=== PATIENT | female | born 1995 | race Caucasian/White ===

== ENCOUNTER 2017-01-03 08:28 | Day surgery (SDC) | payer MEDICAID ==
[~2017-01-03 08:28] MED LIST: Lactated Ringers 1,000 ML IV SCH; Lidocaine 1%/Sod Bicarbonate in NS 8.4% 1 ML Syringe IV PRN; Sodium Chloride 0.9% 10 ML Syringe FLUSH PRN
--- NOTE | 2017-01-03 08:55 | PCM.PREANE ---
Preanesthetic Assessment - Anesthesia/Transfusion/Family Hx Anesthesia History: Prior Anesthesia Without Reaction Family History of Anesthesia Reaction: No Transfusion History: No Prior Transfusion(s) - Review of Systems General: No Symptoms Pulmonary: Shortness of Breath (few weeks- allergies- needs inhaler) Cardiovascular: Chest Pain (went to dr and is now here- esophagus area) Gastrointestinal: No symptoms Neurological: No Symptoms Other: Reports: Easy Bruising, Depression, Anxiety - Physical Assessment NPO Status Date: 01/02/17 NPO Status Time: 19:00 (sip this am with pill) Pulse: 81 O2 Sat by Pulse Oximetry: 99 Respiratory Rate: 16 Blood Pressure: 110/49 Temperature: 97.6 F Height: 5 ft Weight: 74.389 kg ASA Class: 2 Mental Status: Alert & Oriented x3 Airway Class: Mallampati = 1 Dentition: Reports: Normal Dentition Thyro-Mental Finger Breadths: 3 Mouth Opening Finger Breadths: 3 ROM/Head Extension: Full Lungs: Clear to auscultation, Normal respiratory effort Cardiovascular: Regular Rate, Regular Rhythm - Allergies Allergies/Adverse Reactions: Allergies Allergy/AdvReac Type Severity Reaction Status Date / Time No Known Allergies Allergy Verified 02/02/14 20:22 - Blood Blood Available: No - Acknowledgements Anesthesia Type Planned: MAC Pt an Appropriate Candidate for the Planned Anesthesia: Yes Alternatives and Risks of Anesthesia Discussed w Pt/Guardian: Yes Pt/Guardian Understands and Agrees with Anesthesia Plan: Yes PreAnesthesia Questionnaire Cardiovascular History: Reports: None Respiratory History: Reports: Other (See Below) (allergies) Gastrointestinal History: Reports: Chronic Constipation, GERD Psychiatric History: Reports: Anxiety, Depression - SUBSTANCE USE Smoking Status *Q: Former Smoker Recreational Drug Use History: Yes Recreational Drug Type: Reports: Marijuana/Hashish, Other (see below) Other Recreational Drug Type: spice-clean about 3 months - HOME MEDS Home Medications: Home Meds ARIPiprazole [Abilify] 10 mg PO DAILY 01/02/17 [History] Famotidine [Pepcid] 20 mg PO DAILY 01/02/17 [History] Norethindrone 1 tab PO DAILY 01/02/17 [History] Sucralfate [Carafate] 1 gm PO QID 01/02/17 [History] cloNIDine [Catapres] 0.1 mg PO BID 01/02/17 [History] - CURRENT (IN HOUSE) MEDS Current Meds: Current Medications Lactated Ringer's (Ringers, Lactated) 1,000 mls @ 125 mls/hr IV ASDIRECTED CRISTÓBAL Lidocaine/Sodium Bicarbonate (Buffered Lidocaine 1% In Ns 8.4%) 0.25 ml IV ONETIME PRN PRN Reason: Prior to IV Start Sodium Chloride (Saline Flush) 10 ml FLUSH ASDIRECTED PRN PRN Reason: Keep Vein Open Discontinued Medications Fentanyl (Sublimaze) Confirm Administered Dose 100 mcg .ROUTE .STK-MED ONE Stop: 01/03/17 09:02 Midazolam HCl (Versed 1 Mg/Ml) Confirm Administered Dose 2 mg .ROUTE .STK-MED ONE Stop: 01/03/17 09:02 Propofol (Diprivan 20 Ml) Confirm Administered Dose 400 mg .ROUTE .STK-MED ONE Stop: 01/03/17 09:02
[2017-01-03] MEDS ORDERED: Propofol 200 MG/20 ML SDV ONE (09:01)
[2017-01-03] MEDS ORDERED: Midazolam 1 MG/ML 2 ML SDV ONE (09:01)
[2017-01-03] MEDS ORDERED: fentaNYL 100 MCG/2 ML SDV ONE (09:01)
--- NOTE | 2017-01-03 09:38 | PCM48HPAN ---
Post Anesthesia Note - EVALUATION WITHIN 48HRS OF ANESTHETIC Vital Signs in Normal Range: Yes Patient Participated in Evaluation: Yes Respiratory Function Stable: Yes Airway Patent: Yes Cardiovascular Function Stable: Yes Hydration Status Stable: Yes Pain Control Satisfactory: Yes Nausea and Vomiting Control Satisfactory: Yes Mental Status Recovered: Yes
--- NOTE | 2017-01-03 09:41 | PCM.OPNOTE ---
- General Post-Op/Procedure Note Date of Surgery/Procedure: 01/03/17 Operative Procedure(s): 1. esophagogastroduodenoscopy with biopsies of the antrum, body of the stomach, distal and proximal esophagus. 2. colonoscopy with ileal biopsy and rectal biopsy Findings: 1. normal EGD 2. normal Colonoscopy Pre Op Diagnosis: 1. chronic GERD, and dysphagia. 2. change in bowel habits Post-Op Diagnosis: Normal panendoscopy Anesthesia Technique: MAC, Moderate sedation Primary Surgeon: Zurdo Frances Pathology: 1. proximal and distal esophageal biopsy x2, body of the stomach, biopsy x2 2. ileal and rectal biopsy x2 EBL in mLs: 0 Complications: None Condition: Good Free Text/Narrative:: After adequate IV sedation and analgesia was obtained the patient was placed on her left side. Through a bite block a lubricated upper endoscope was inserted into the esophagus and advanced under direct vision to the stomach. Additional air was given here, followed by entry into the second part of the duodenum. The second, and first portions were endoscopically normal with no inflammation. The antrum, and body of stomach were also unremarkable. In the retroflexed view there was no hiatal hernia. The fundus and cardiac, regions were normal. The rugal folds were grossly normal. Because of her history I took random biopsies of the antrum x2 with cold forceps and biopsies in the body of the stomach. The scope was withdrawn to the distal esophagus. The GE junction was sharp, at 32 cm. I took 2 random biopsies here. The body of the esophagus was endoscopically normal. Nevertheless, I took 2 proximal esophageal biopsies. Photographs were taken for the patient and for the record of these areas. The vocal cords were briefly visualized and were normal. Perianal inspection digital rectal examination were performed and were normal. A lubricated colonoscope was inserted into the rectum and advanced to the cecum without difficulty. The bowel preparation was excellent. I intubated the terminal ileum, which was endoscopically normal and because of her history I took 2 random biopsies for histologic review. The cecum, right colon, transverse , and descending colons were normal as well. The sigmoid and rectum are also normal. I took 2 random biopsies of the rectum. Air was removed, as I finished his part of the procedure, and there were no consultations. Photographs were taken for the patient and for the record.
[2017-01-03 09:50] VITALS: BP 88/53
== END 2017-01-03 10:12 | disposition home or self-care (01) ==
LOC: JD.SDS 08:28
PROVIDERS: ATTEND Surgery
PROC: 0DB48ZX Excision of Esophagogastric Junction, Via Natural or Artificial Opening Endoscopic, Diagnostic (ICD-10-PCS; principal; 2017-01-03)
PROC: 0DB68ZX Excision of Stomach, Via Natural or Artificial Opening Endoscopic, Diagnostic (ICD-10-PCS; 2017-01-03)
PROC: 0DBB8ZX Excision of Ileum, Via Natural or Artificial Opening Endoscopic, Diagnostic (ICD-10-PCS; 2017-01-03)
PROC: 0DBP8ZX Excision of Rectum, Via Natural or Artificial Opening Endoscopic, Diagnostic (ICD-10-PCS; 2017-01-03)
DX: K29.50 Unspecified chronic gastritis without bleeding (principal); K20.8 Other esophagitis; R10.9 Unspecified abdominal pain; K59.00 Constipation, unspecified; Z87.19 Personal history of other diseases of the digestive system; R04.2 Hemoptysis; Z87.891 Personal history of nicotine dependence
CPT/HCPCS: 43239; 45380; 81025; J2250; J3010; J7120; J2704

== ENCOUNTER 2017-07-03 15:44 | Emergency (ER) | payer MEDICAID ==
[2017-07-03] MEDS ORDERED: HYDROmorphone 1 MG/ML Syringe IM ONE (16:02)
[2017-07-03] MEDS ORDERED: Ketorolac 60 MG/2 ML SDV IM ONE (16:03)
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
[2017-07-03 17:19] VITALS: BP 108/68
== END 2017-07-03 17:08 | disposition home or self-care (01) ==
LOC: JD.ED 15:44
DX: T23.241A Burn of second degree of multiple right fingers (nail), including thumb, initial encounter (principal); X10.2XXA Contact with fats and cooking oils, initial encounter
CPT/HCPCS: 16000; 96372; 99283; J1170; J1885

== ENCOUNTER 2018-02-03 06:20 | Emergency (ER) | payer MEDICAID ==
[2018-02-03 06:36] VITALS: BP 116/84
--- NOTE | 2018-02-03 07:06 | EDM.PDOC ---
ED HPI GENERAL MEDICAL PROBLEM - General Chief Complaint: Gastrointestinal Problem Stated Complaint: VOMMITTING BLOOD Time Seen by Provider: 02/03/18 07:03 Source of Information: Reports: Patient History Limitations: Reports: No Limitations - History of Present Illness INITIAL COMMENTS - FREE TEXT/NARRATIVE: 22-year-old female presents the ED with reported recurrent he met emesis. She states first I was about 4-5 days ago when she spontaneously vomited. Blood. There was no clots was bright red. She's had no nosebleeds or injuries to her head or face. She's been having constant burning pain in her epigastrium for several weeks. She uses ranitidine on a when necessary basis. Yesterday she had he met emesis once again. This is been associated with black tarry stools 3 over the last 3 days. She feels weak and a little bit dizzy upon standing. She has been using ranitidine the last 3 days. She denies any alcohol use. She denies taking Alev, Motrin, or aspirins. She had a sandwich 2 days ago and some fast food last night.Continues to have a burning discomfort in her epigastrium rating slightly through to the right upper quadrant of the abdomen and back. Vital signs reveal a resting heart rate of 109. BP is 116/84. Onset: Gradual Onset Date: 01/29/18 Duration: Day(s): Location: Reports: Abdomen (Mostly burning pain in the epigastrium with associated he met emesis 3 over the last 5 days and melena stool.) Quality: Reports: Ache, Burning Severity: Moderate Improves with: Reports: None, Other Worsens with: Reports: Eating Context: Denies: Activity, Exercise, Lifting, Sick Contact, Trauma, Other Associated Symptoms: Reports: Malaise, Weakness, Other. Denies: Confusion, Chest Pain, Cough, cough w sputum, Diaphoresis, Fever/Chills, Headaches, Loss of Appetite, Nausea/Vomiting, Rash, Seizure, Shortness of Breath, Syncope Treatments [employer]: Reports: Other (see below) (Mild dizziness.) Abdomen Pain Score (Numeric/FACES): 10 - Related Data Allergies Allergy/AdvReac Type Severity Reaction Status Date / Time No Known Allergies Allergy Verified 02/03/18 06:36 Home Meds: Home Meds Control. 1 tab PO DAILY 11/28/17 [History] Citalopram [Citalopram HBr] 20 mg PO DAILY 02/03/18 [History] Omeprazole 20 mg PO ASDIRECTED #42 cap.sr 02/03/18 [Rx] Pantoprazole [ProTONIX] 40 mg PO DAILY 02/03/18 [History] hydrOXYzine Pamoate [Hydroxyzine Pamoate] 50 mg PO Q6H PRN 02/03/18 [History] Past Medical History HEENT History: Reports: Impaired Vision, Other (See Below) Other HEENT History: recurrent bronchitis and tonsillitis Cardiovascular History: Reports: None Respiratory History: Reports: Other (See Below) (allergies) Gastrointestinal History: Reports: Chronic Constipation, GERD Musculoskeletal History: Reports: Other (See Below) Other Musculoskeletal History: knock knee syndrome Psychiatric History: Reports: Anxiety, Depression, Panic Attack Dermatologic History: Reports: Other (See Below) Other Dermatologic History: acne Social & Family History - Family History Cardiac: Reports: Bypass, CAD Endocrine/Metabolic: Reports: Diabetes, type II Oncologic: Reports: Breast, Colon, Lung, Skin - Tobacco Use Smoking Status *Q: Never Smoker - Caffeine Use Caffeine Use: Reports: Energy Drinks - Recreational Drug Use Recreational Drug Use: Yes Drug Use in Last 12 Months: Yes Recreational Drug Type: Reports: Marijuana/Hashish - Living Situation & Occupation Living situation: Reports: Single Occupation: Employed ED ROS GENERAL - Review of Systems Review Of Systems: See Below Constitutional: Reports: Malaise, Weakness, Fatigue, Decreased Appetite. Denies : Fever, Chills, Weight Loss HEENT: Reports: No Symptoms Respiratory: Reports: No Symptoms Cardiovascular: Reports: No Symptoms Endocrine: Reports: Fatigue GI/Abdominal: Reports: Abdominal Pain, Hematemesis Musculoskeletal: Reports: No Symptoms Skin: Reports: No Symptoms Neurological: Reports: No Symptoms Psychiatric: Reports: No Symptoms Hematologic/Lymphatic: Reports: No Symptoms Immunologic: Reports: No Symptoms ED EXAM, GI/ABD - Physical Exam Exam: See Below Exam Limited By: No Limitations General Appearance: Alert, WD/WN, No Apparent Distress, Other (Appears tired.) Eyes: Bilateral: Pale Conjunctiva (Mild.) Throat/Mouth: Normal Inspection, Normal Lips, Normal Teeth, Normal Gums, Normal Oropharynx Head: Atraumatic, Normocephalic Neck: Normal Inspection, Supple, Non-Tender, Full Range of Motion. No: Lymphadenopathy (L), Lymphadenopathy (R) Respiratory/Chest: No Respiratory Distress, Lungs Clear, Normal Breath Sounds Cardiovascular: Normal Peripheral Pulses, Regular Rate, Rhythm, No Edema, No Gallop, No Murmur, No Rub GI/Abdominal Exam: Soft, Non-Tender, No Organomegaly, No Abnormal Bruit, No Mass , Pelvis Stable, Tender. No: Guarding (Mild tenderness in the epigastrium), Rigid, Rebound Back Exam: Normal Inspection, Full Range of Motion. No: CVA Tenderness (L), CVA Tenderness (R) Extremities: Normal Inspection, Normal Range of Motion, Non-Tender, No Pedal Edema Neurological: Alert, Oriented, CN II-XII Intact, Normal Cognition, Normal Gait Psychiatric: Normal Mood, Flat Affect Skin Exam: Warm, Dry, Intact, Normal Color, No Rash Course - Vital Signs Last Recorded V/S: Last Vital Signs Temp 36.4 C 02/03/18 06:28 Pulse 109 H 02/03/18 06:28 Resp 16 02/03/18 06:28 BP 116/84 02/03/18 06:28 Pulse Ox 99 02/03/18 06:28 Orthostatic Blood Pressure [ 110/71 Standing] Orthostatic Blood Pressure [ 118/71 Sitting] Orthostatic Blood Pressure [ 112/64 Supine] - Orders/Labs/Meds Orders: Active Orders 24 hr Category Date Time Status Orthostatic Vital Signs [RC] ASDIRECTED Care 02/03/18 07:03 Active Guaiac [OCCULT BLOOD DIAGNOSTIC] [OP] Stat Lab 02/03/18 07:17 Ordered TYPE AND SCREEN [BBK] Stat Lab 02/03/18 07:20 Received Labs: Laboratory Tests 02/03/18 02/03/18 02/03/18 Range/Units 07:20 07:20 07:20 WBC 8.27 (3.98-10.04) K/mm3 RBC 5.36 H (3.98-5.22) M/mm3 Hgb 15.5 (11.2-15.7) gm/L Hct 46.4 H (34.1-44.9) % MCV 86.6 (79.4-94.8) fl MCH 28.9 (25.6-32.2) pg MCHC 33.4 (32.2-35.5) g/dl RDW Std Deviation 42.8 (36.4-46.3) fL Plt Count 207 (182-369) K/mm3 MPV 11.5 (9.4-12.3) fl Neutrophils % (Manual) 63 H (40-60) % Band Neutrophils % 0 (0-10) % Lymphocytes % (Manual) 32 (20-40) % Atypical Lymphs % 0 % Monocytes % (Manual) 5 (2-10) % Eosinophils % (Manual) 0 L (0.7-5.8) % Basophils % (Manual) 0 L (0.1-1.2) Platelet Estimate Adequate RBC Morph Comment Normal PT (9.5-12.1) SECONDS INR APTT (24-31) SECONDS Sodium 139 (136-145) mEq/L Potassium 3.2 L (3.5-5.1) mEq/L Chloride 103 (98-107) mEq/L Carbon Dioxide 27 (21-32) mEq/L Anion Gap 12.2 (5-15) BUN 15 (7-18) mg/dL Creatinine 0.8 (0.55-1.02) mg/dL Est Cr Clr Drug Dosing 79.90 mL/min Estimated GFR (MDRD) > 60 (>60) mL/min BUN/Creatinine Ratio 18.8 H (14-18) Glucose 93 (74-106) mg/dL Calcium 8.6 (8.5-10.1) mg/dL Magnesium 1.8 (1.8-2.4) mg/dl Total Bilirubin 0.4 (0.2-1.0) mg/dL AST 17 (15-37) U/L ALT 17 (14-59) U/L Alkaline Phosphatase 66 (46-116) U/L Total Protein 7.7 (6.4-8.2) g/dl Albumin 3.8 (3.4-5.0) g/dl Globulin 3.9 gm/dL Albumin/Globulin Ratio 1.0 (1-2) Lipase (73-393) U/L HCG, Qual Negative (NEGATIVE) Ethyl Alcohol 0.00 (0.00) gm% H. pylori IgG Antibody Negative (NEGATIVE) 02/03/18 02/03/18 Range/Units 07:20 07:20 WBC (3.98-10.04) K/mm3 RBC (3.98-5.22) M/mm3 Hgb (11.2-15.7) gm/L Hct (34.1-44.9) % MCV (79.4-94.8) fl MCH (25.6-32.2) pg MCHC (32.2-35.5) g/dl RDW Std Deviation (36.4-46.3) fL Plt Count (182-369) K/mm3 MPV (9.4-12.3) fl Neutrophils % (Manual) (40-60) % Band Neutrophils % (0-10) % Lymphocytes % (Manual) (20-40) % Atypical Lymphs % % Monocytes % (Manual) (2-10) % Eosinophils % (Manual) (0.7-5.8) % Basophils % (Manual) (0.1-1.2) Platelet Estimate RBC Morph Comment PT 10.7 (9.5-12.1) SECONDS INR 0.98 APTT 30 (24-31) SECONDS Sodium (136-145) mEq/L Potassium (3.5-5.1) mEq/L Chloride (98-107) mEq/L Carbon Dioxide (21-32) mEq/L Anion Gap (5-15) BUN (7-18) mg/dL Creatinine (0.55-1.02) mg/dL Est Cr Clr Drug Dosing mL/min Estimated GFR (MDRD) (>60) mL/min BUN/Creatinine Ratio (14-18) Glucose (74-106) mg/dL Calcium (8.5-10.1) mg/dL Magnesium (1.8-2.4) mg/dl Total Bilirubin (0.2-1.0) mg/dL AST (15-37) U/L ALT (14-59) U/L Alkaline Phosphatase (46-116) U/L Total Protein (6.4-8.2) g/dl Albumin (3.4-5.0) g/dl Globulin gm/dL Albumin/Globulin Ratio (1-2) Lipase 123 (73-393) U/L HCG, Qual (NEGATIVE) Ethyl Alcohol (0.00) gm% H. pylori IgG Antibody (NEGATIVE) Meds: Medications Discontinued Medications Generic Name Dose Route Start Last Admin Trade Name Freq PRN Reason Stop Dose Admin Al Hydroxide/Mg Hydroxide 30 ml 02/03/18 07:11 02/03/18 07:37 Mag-Al Plus PO 02/03/18 07:12 30 ml ONETIME ONE Administration Sodium Chloride 1,000 mls @ 250 mls/hr 02/03/18 07:15 02/03/18 07:34 Normal Saline IV 250 mls/hr ASDIRECTED CRISTÓBAL Administration Ondansetron HCl 4 mg 02/03/18 07:44 02/03/18 08:09 Zofran IVPUSH 02/03/18 07:45 4 mg ONETIME ONE Administration Pantoprazole Sodium 40 mg 02/03/18 07:11 02/03/18 07:36 Protonix Iv IVPUSH 02/03/18 07:12 40 mg ONETIME ONE Administration - Radiology Interpretation Free Text/Narrative:: 22-year-old female presents the ED reporting that she's had hematemesis 3 over the last 5 days. Associated melena stool particularly after the first upper GI bleeding. No nasal bleeding. Exam reveals her to be minimally pallid. Vital signs are stable at this time. Orthostatics are pending. Been eating very little bit last 3-4 days. She does not drink alcohol or take NSAIDs. The EGD done by Dr. Frances about a year and a half ago was found to have gastritis but no definitive peptic ulcer disease. I presume H. pylori assessment was done at that time. Plan normal saline at 250mls/hr. Protonix 40 mg IV bolus. Will rate the results of her labs. - Re-Assessments/Exams Free Text/Narrative Re-Assessment/Exam: 02/03/18 07:47 she is complaining of nausea. Will give her Zofran 4 mg IV. Orthostatic BPs are within normal limits. 02/03/18 08:22 Labs are starting to come back. White count was 8.27 with differential pending. Hemoglobin is 15.5 with hematocrit of 46.4. Platelet count is 207,000. PT is 10.7 with an INR of 0.98. PTT is 30. Sodium is 139 potassium slightly low at 3.2. Chloride 103 with a bicarbonate 27. And a gap is 12.2. B1 is 15. Creatinine is 0.8. Estimated GFR is greater than 60. Glucose is 93 with a calcium of 8.6. Magnesium is 1.8. Bilirubin is 0.4. AST is 17 ALT is 17 a prosthesis 66. Total protein is 7.7. Albumin fraction normal at 3.8. Lipase 123. Beta hCG was negative. Blood alcohol is 0H pylori antibody is negative as well. Therefore we have a young lady with reported upper GI bleeding and melena stool on 2 occasions over the last few days. However her vital signs are stable and her labs are completely stable. She does require upper GI endoscopy which can be done as an outpatient. In the meantime I will place her on Zantac 150 milligrams twice daily for 5 days in combination with Prilosec 20 mg twice daily for 7 days and then 1 tablet at bedtime only for another month to heal any potential ulceration or gastritis of the stomach. She is to follow-up with her primary care physician tomorrow ideally and get an EGD set up with Dr. Cummings/Yvrose. Departure - Departure Time of Disposition: 08:45 Disposition: Home, Self-Care 01 Condition: Fair Clinical Impression: Upper gastrointestinal bleed - Discharge Information Prescriptions: Omeprazole 20 mg PO ASDIRECTED #42 cap.sr Instructions: Upper Gastrointestinal Bleeding Referrals: Zahira Arenas NP [Primary Care Provider] - Forms: ED Department Discharge, ED Return to Work/School Form Additional Instructions: Evaluation in the emergency department today in regards to reported hematemesis or vomiting blood on 2 occasions over the last 4-5 days. Associated dark black tarry stools for at least 2 occasions over the last 2 days. This suggests that you are bleeding from your stomach either from gastritis from inflammation of the wall of the stomach or definitive peptic ulcer. Vital signs are normal at this point time. Lab work shows hemoglobin to be 15.5 which is normal. No other abnormalities were identified on lumbar laboratory workup including clotting times etc. therefore at this point time it appears the bleeding is minimal. You do need to start medications Zantac 150 milligrams twice daily for the next 5 days. This is in combination with Prilosec 20 mg twice daily for the next week and then 1 tablet at bedtime for a month to heal any peptic ulcer disease or gastritis. You do need follow-up upper GI endoscopy preferably this week. Please follow-up with your primary care provider tomorrow to get something set up with either Dr. Frances or Dr. Cummings. Suggest off work today and tomorrow to allow things to settle down in terms of no clot falling off peptic ulcer if it is present in your stomach for the next 2 days. Diet is to be fairly bland with plenty of fluids but keeping the diet fairly light to things like yogurt, milk shakes, puddings., Ice cream etc. no alcohol use for at least a week. No use of nonsteroidal anti-inflammatory such as Motrin or Aleve or aspirin for at least 2 weeks. Tylenol only for headaches etc. - My Orders Last 24 Hours: My Active Orders 02/03/18 07:03 Orthostatic Vital Signs [RC] ASDIRECTED 02/03/18 07:17 Guaiac [OCCULT BLOOD DIAGNOSTIC] [OP] Stat 02/03/18 07:20 TYPE AND SCREEN [BBK] Stat - Assessment/Plan Last 24 Hours: My Active Orders 02/03/18 07:03 Orthostatic Vital Signs [RC] ASDIRECTED 02/03/18 07:17 Guaiac [OCCULT BLOOD DIAGNOSTIC] [OP] Stat 02/03/18 07:20 TYPE AND SCREEN [BBK] Stat
[2018-02-03] MEDS ORDERED: Pantoprazole 40 MG Vial IVPUSH ONE (07:11)
[2018-02-03] MEDS ORDERED: Aluminum Hydroxide/Magnesium Hydroxide/Simethicone Susp 30 ML Cup PO ONE (07:11)
[2018-02-03] MEDS ORDERED: Sodium Chloride 0.9% 1,000 ML IV SCH (07:15)
[2018-02-03] MEDS ORDERED: Ondansetron 4 MG/2 ML SDV IVPUSH ONE (07:44)
== END 2018-02-03 08:53 | disposition home or self-care (01) ==
LOC: JD.ED 06:20
DX: K92.2 Gastrointestinal hemorrhage, unspecified (principal); Z79.899 Other long term (current) drug therapy
CPT/HCPCS: 36415; 80053; 83690; 83735; 84703; 85007; 85027; 85610; 85730; 86677; 86850; 86900; 86901; 96361; 96374; 99285; A9270; C9113; G0480; J2405; J7040; 96375

== ENCOUNTER 2020-06-17 17:05 | Emergency (ER) | payer MEDICAID ==
[2020-06-17 17:38] VITALS: BP 122/68; PULSE 99
[2020-06-17] MEDS ORDERED: Sodium Chloride 0.9% 10 ML Syringe FLUSH PRN (18:15)
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
--- NOTE | 2020-06-18 08:48 | US ---
PROCEDURE INFORMATION: Exam: US , Transvaginal Exam date and time: 06/17/2020 7:37 PM Age: 24 years old Clinical indication: Lmp or gestational age (in weeks): See worksheets; Antepartum complications; Bleeding; Patient HX: See worksheet for indication of exam. TECHNIQUE: Imaging protocol: Real-time transvaginal obstetrical ultrasound of the maternal pelvis and a first trimester with image documentation. Transvaginal imaging was used for better evaluation of the fetus, adnexa, and/or cervix. COMPARISON: US Transvaginal Non OB 09/05/2016 1:15 PM FINDINGS: Uterus: The uterus is anteverted and measures 7.5 x 5.2 x 4.2 cm. The myometrium is homogeneous. The endometrial stripe measures 7 mm in thickness. Within the endometrial canal, there is a rather subtle rounded echogenic area measuring 1.1 x 1.2 x 0.8 cm which does not contain any detectable blood flow. There is trace fluid within the endocervical canal. Right adnexa: The right ovary measures 3.1 x 1.5 x 1.7 cm. The right ovary contains a 1.6 cm mildly echogenic rounded area which may correspond to a corpus luteal cyst. There is normal blood flow in the right ovary. Left adnexa: The left ovary measures 2.6 x 2.0 x 1.2 cm and is normal in appearance with normal blood flow. Intraperitoneal space: There is no free air or free fluid in the abdomen or pelvis. IMPRESSION: 1. There is no evidence of a gestational sac or pole in the uterus. 2. There is a subtle rounded echogenic area within the endometrial canal measuring 1.2 cm which does not contain any detectable internal blood flow. This finding is nonspecific and could represent a small focus of retained products of conception or endometrial polyp. The endometrium is not thickened and is otherwise normal in appearance. 3. Normal blood flow in the ovaries. Suspected corpus luteal cyst in the right ovary. Thank you for allowing us to participate in the care of your patient. Dictated and Authenticated by: Trini Alberto MD 06/17/2020 9:16 PM Central Time ([place] & [place]) [place]
== END 2020-06-17 21:55 | disposition home or self-care (01) ==
LOC: JD.ED 17:05
DX: R10.30 Lower abdominal pain, unspecified (principal); N93.9 Abnormal uterine and vaginal bleeding, unspecified; Z87.59 Personal history of other complications of pregnancy, childbirth and the puerperium; Z87.891 Personal history of nicotine dependence
CPT/HCPCS: 36415; 76817; 76817-26; 80053; 81001; 84702; 84703; 85025; 86850; 86900; 86901; 99283; 99284-25